=== PATIENT | male | born 1970 | race Caucasian/White ===

== ENCOUNTER 2023-08-20 23:39 | Emergency (ER) | payer MEDICAID ==
[~2023-08-20] VITALS: Ht 170.2 cm; Wt 90.0 kg
[2023-08-20 23:53] VITALS: TEMP 98.4
[2023-08-21 02:01] VITALS: BP 147/74; PULSE 69; RESP 16
[2023-08-21] MEDS: ACETAMINOPHEN 500 MG TABLET PO ONE (03:12)
== END 2023-08-21 04:46 | disposition home or self-care (01) ==
LOC: EMS 23:40
DX: S40.012A Contusion of left shoulder, initial encounter (principal); S20.211A Contusion of right front wall of thorax, initial encounter; S50.02XA Contusion of left elbow, initial encounter; Z88.0 Allergy status to penicillin; W19.XXXA Unspecified fall, initial encounter; Y93.89 Activity, other specified; Y92.89 Other specified places as the place of occurrence of the external cause; Y99.8 Other external cause status
CPT/HCPCS: 71100; 99284; 73030-TC; 73070-TC; Z7502; Z7610